=== PATIENT | female | born 1980 | race Caucasian/White ===

== ENCOUNTER 2021-12-20 16:16 | Emergency (ER) | payer OTHER ==
[2021-12-20 17:44] LABS: HCT 38.2 % (37.0-47.0); HGB 12.2 g/dl (12.5-16.0); LYMPHOCYTE 38.2 % (15-48); MCH 24.5 pg (25.0-31.0); MCHC 31.9 g/dL (32.0-36.0); MCV 76.9 fL (78.0-100.0); MONOCYTE 6.3 % (0-12); MPV 12.2 fL (6.0-9.5); NEUTROPHIL 51.3 % (41-80); NRBC 0; PLT 274 K/uL (150-400); RBC 4.97 M/uL (4.20-5.40); RDW 15.2 % (11.5-14.0); WBC 6.3 K/uL (4.0-10.5)
[2021-12-20 18:17] LABS: INR 1.04 (0.9-1.2); PTT 30.1 SECONDS (24.4-34.7)
[2021-12-20 18:18] LABS: D-DIMER 0.32 ug/mLFEU (0.00-0.41)
[2021-12-20 18:20] LABS: BILIRUBIN NEGATIVE (NEGATIVE); BLOOD 1+ Ery/uL (NEGATIVE); CLARITY CLEAR (CLEAR); COLOR YELLOW (YELLOW); GLUCOSE (U) NORMAL (NORMAL); LEUKOCYTES 1+ Leu/uL (NEGATIVE); NITRITE NEGATIVE (NEGATIVE); PROTEIN NEGATIVE (NEGATIVE); SPECIFIC GRAVITY <=1.005 (1.001-1.030); UROBILINOGEN 0.2 mg/dL (0.2-1.0); pH 6.5 (5.0-9.0)
[2021-12-20 18:29] LABS: BACTERIA 1+
[2021-12-20 18:33] LABS: ALBUMIN 4.5 g/dL (3.4-5.0); BILIRUBIN - TOTAL 0.2 mg/dL (0.2-1.0); BUN/CREAT RATIO (CALC) 13.4 RATIO; CREATININE 0.67 mg/dL (0.51-0.95); GLOBULIN (CALCULATION) 3.8 g/dL; POTASSIUM 4.1 mmol/L (3.5-5.1); TOTAL PROTEIN 8.3 g/dL (6.4-8.2)
[2021-12-20 19:01] LABS: INFLUENZA A NAA NEGATIVE (NEGATIVE)
[2021-12-20 19:04] LABS: CORONAVIRUS 2019 SARS-COV-2 POSITIVE (NEGATIVE)
[2021-12-20] MEDS ORDERED: MEDROL 4MG DOSEP4 MG PO (20:18)
[2021-12-20] MEDS ORDERED: IBUPROFEN800 MG PO (20:18)
== END 2021-12-20 20:36 | disposition home or self-care (01) ==
LOC: FER 16:16
PROVIDERS: Nurse Practitioner Family
DX: R07.89 Other chest pain (principal); U07.1 COVID-19; Z88.0 Allergy status to penicillin; Z88.1 Allergy status to other antibiotic agents; Z88.8 Allergy status to other drugs, medicaments and biological substances
CPT/HCPCS: 36415; 71045; 80053; 81001; 84145; 84484; 85025; 85379; 85610; 85730; 87040; 93005; J1100; J1885; U0002